=== PATIENT | male | born 1980 | race Caucasian/White ===

== ENCOUNTER 2016-03-08 10:24 | Emergency (ER) | payer OTHER ==
[2016-03-08 10:46] VITALS: BP 111/67
[2016-03-08] MEDS ORDERED: CYCLOBENZAPRINE HCL 10 MG TABLET PO ONE (12:36)
[2016-03-08] MEDS ORDERED: KETOROLAC TROMETHAMINE 60 MG/2 ML VIAL IM ONE ×2 (12:36→12:44)
[2016-03-08] MEDS ORDERED: DIAZEPAM 5 MG/ML SYRG IM ONE (12:36)
[2016-03-08] MEDS ORDERED: DIAZEPAM 5 MG/ML SYRG ONE (12:44)
[2016-03-08] MEDS ORDERED: CYCLOBENZAPRINE HCL 10 MG TABLET ONE ×2 (12:44→12:53)
--- NOTE | 2016-03-08 12:56 | ERNOTE ---
Medical Problem HPI - Narrative Date of Service: 03/08/16 - General Chief Complaint: General Assessment Time Seen by Provider: 03/08/16 12:25 Source: patient, family, RN notes reviewed Exam Limitations: no limitations - Immun/Allergies/Home Medications Immunizations: IMMUNIZATION HX Immunizations Up to Date Yes History of Influenza Vaccine Yes Hx Pneumococcal Vaccination No Allergies/Adverse Reactions: Allergies No Known Allergies Allergy (Verified 03/08/16 10:46) Home Medications: HOME MEDICATIONS Acetaminophen [Tylenol] 650 mg PO Q4H PRN 06/23/15 [Last Taken Unknown] Fluoxetine HCl [Prozac] 40 mg PO DAILY 06/23/15 [Last Taken Unknown] Ibuprofen [Motrin] 400 mg PO Q6H PRN 09/19/15 [Last Taken Unknown] Metoprolol Tartrate [Lopressor] 12.5 mg PO BID 09/19/15 [Last Taken Unknown] Cyclobenzaprine HCl [Flexeril] 10 mg PO TID PRN #20 tab 03/08/16 [Last Taken Unknown] - History of Present History Narrative: Juan Diego is a 36 year old male ambulatory to the ED for pain in his left lateral/ posterior lower rib region that began suddenly while having an episode of coughing and then vomiting last night. He went out for breakfast this morning and reports passing out due to the pain while he was coughing. He has had the cough for several months and is being evaluated [facility] for this. He has a chest CT scheduled there on 03/13/16. He took Tylenol for pain early this morning. Date (Duration): 03/07/16 Review of Systems - Review of Systems Constitutional: Absent: fever, chills EYE: Present: no symptoms reported ENT: Present: no symptoms reported Respiratory: Present: shortness of breath, cough. Absent: orthopnea, wheezing Cardiology: Absent: chest pain, edema Gastrointestinal/Abdominal: Present: vomiting. Absent: diarrhea, abdominal pain Genitourinary: Present: no symptoms reported Musculoskeletal: Present: muscle pain. Absent: joint pain Skin: Absent: lesions, lumps, change in color Neurological: Absent: weakness, numbness, tingling Endocrine: Present: no symptoms reported Hematologic/Lymphatic: Present: no symptoms reported Psych: Present: no symptoms reported - Patient's Past Medical History Patient History - Medical: Arthritis, Depression, Osteoarthritis Patient History - Cardiac/Respiratory: Asthma Patient History - Cancer: No Hx of Cancer Patient History - Surgical Procedures: T & A, Other - Family History Mother Family History - Cardiac/Respiratory: Arrhythmias, Hypertension - Social History Living Situations: home Smoking Status: Never smoker Alcohol Use: none Drug Use: none Physical Exam - Physical Exam General Appearance: Present: wd/wn, alert, mild distress, obese, other - disheveled Respiratory: Present: no respiratory distress, normal breath sounds, no accessory muscle use, lungs clear, chest tenderness - left lower lateral/ posterior rib region Cardiovascular/Chest: Present: regular rate, rhythm, no murmur Back Exam: Present: no CVA tenderness, no vertebral tenderness Neurological Exam: Present: alert, oriented, no motor/sensory deficits, other - flat affect Skin Exam: Present: normal color, warm/dry ED Progress - Vital Signs Patient's Vital Signs:: I have reviewed the patient's vital signs. Vital Signs: Vital Signs 03/08/16 10:39 Temperature 36.1 C L Pulse Rate 104 H Respiratory 95 H Rate Blood Pressure 111/67 O2 Sat by Pulse 95 Oximetry - Progress/Reassessment Chief Complaint: General Assessment Progress:: Improved Departure - Departure Clinical Impression: Muscle strain of chest wall Qualifiers: Encounter type: initial encounter Qualified Code(s): S29.011A - Strain of muscle and tendon of front wall of thorax, initial encounter Disposition: Home Follow Up Needed Condition: Fair Instructions: Muscle Strain, [id number] Additional Instructions: Ice or heat to sore area Naproxen twice a day with food - take Tylenol also [facility] Prescriptions: Cyclobenzaprine HCl [Flexeril] 10 mg PO TID PRN #20 tab PRN Reason: MUSCLE SPASMS
== END 2016-03-08 12:58 | disposition home or self-care (01) ==
LOC: ER 10:24
DX: S29.011A Strain of muscle and tendon of front wall of thorax, initial encounter (principal); F32.9 Major depressive disorder, single episode, unspecified